=== PATIENT | female | born 1965 | race African-American/Black ===

== ENCOUNTER 2017-02-28 13:39 | Emergency (ER) | payer OTHER, SELFPAY ==
[~2017-02-28 13:39] MED LIST: ISOVUE-370 76%-LOCM 1 ML ONE
[2017-02-28 14:39] LABS: #Basophils 0.1 thou/uL (0.0-0.2); #Eosinphils 0.1 thou/uL (0.0-0.7); #Lymphocytes 0.9 thou/uL (1.20-3.40); #Monocytes 0.6 thou/uL (0.11-0.59); #Neutrophils 6.8 thou/uL (1.40-6.50); %Basophils 0.6 % (0.0-1.0); %Eosinophils 0.9 % (0.0-10.0); %Lymphocytes 11.1 % (21.0-51.0); %Monocytes 6.6 % (0.0-10.0); Hematocrit 44.4 % (36.0-47.0); Mean Platelet Volume 9.2 fL (7.4-10.4); Red Blood Cell (RBC) Count 4.38 mill/uL (4.20-5.40); White Blood Cell (WBC) Count 8.4 thou/uL (4.8-10.8)
[2017-02-28 14:42] LABS: Bilirubin Small (Negative); Blood, Urine Negative (Negative); Glucose, Urine (Dipstick) Negative (Negative); Ketone, Urine Negative (Negative); Nitrite Negative (Negative); Protein, Urine (Dipstick) Negative (Neg-Trace)
[2017-02-28 15:00] LABS: ALT (SGPT) 27 U/L (8-55); AST (SGOT) 43 U/L (5-34); Alkaline Phosphatase 193 U/L (40-150); Anion Gap 13 mmol/L (10-20); BUN (Urea Nitrogen) 15 mg/dL (7.0-18.7); Bilirubin, Total 1.3 mg/dL (0.2-1.2); Calc. Creatinine Clearance 0 mL/min (70-130); Calcium 9.9 mg/dL (7.8-10.44); Carbon Dioxide 26 mmol/L (22-29); Chloride 100 mmol/L (98-107); Estimated GFR-MDRD 76; Globulin 4.8 g/dL (2.4-3.5); Lipase 17 U/L (8-78)
[2017-02-28] MEDS ORDERED: Morphine 4 MG/ML VIAL ONE (18:36)
[2017-02-28] MEDS ORDERED: Ondansetron HCl/PF 4 MG/2 ML Vial ONE ×2 (18:36)
[2017-02-28] MEDS ORDERED: Acetaminophen 500 MG TAB ONE (21:22)
--- NOTE | 2017-02-28 21:59 | CT ---
CT ABDOMEN AND PELVIS WITH IV CONTRAST 02/28/17 PROVIDED CLINICAL HISTORY: Abdominal pain. FINDINGS: Comparison is made with the study dated 03/22/14. The visualized lung bases are free of significant opacity. The liver, spleen, pancreas, kidneys and adrenal glands appear unremarkable. Changes of interval chol ecystectomy. There is no bowel dilatation, inflammatory fat stranding, free fluid or free air apparent. There is f luid density present within portions of the colon suggesting a diarrheal illness. The appendix is gen erous in caliber but contains air and there is no surrounding inflammatory change. The osseous structures demonstrate no concerning osteoblastic or osteolytic lesions. IMPRESSION: Fluid density within the colon, suggesting a diarrheal illness. POS: ANN MARIE
== END 2017-02-28 21:27 | disposition home or self-care (01) ==
LOC: ERS 13:39
DX: R10.84 Generalized abdominal pain (principal); R11.2 Nausea with vomiting, unspecified; R19.7 Diarrhea, unspecified; I10 Essential (primary) hypertension
CPT/HCPCS: 36415; 74177; 80053; 81003; 81025; 83690; 85025; 96374; 96375; J2270; J2405

== ENCOUNTER 2017-03-31 15:01 | Emergency (ER) | payer SELFPAY ==
[2017-03-31] MEDS ORDERED: Ketorolac Tromethamine 60 MG/2 ML VIAL ONE (16:15)
[2017-03-31] MEDS ORDERED: Adacel (T-DAP) 0.5 ML VIAL ONE (16:16)
== END 2017-03-31 16:49 | disposition home or self-care (01) ==
LOC: ERS 15:01
DX: S00.03XA Contusion of scalp, initial encounter (principal); S50.02XA Contusion of left elbow, initial encounter; Y92.69 Other specified industrial and construction area as the place of occurrence of the external cause; Y99.0 Civilian activity done for income or pay; I10 Essential (primary) hypertension; W22.8XXA Striking against or struck by other objects, initial encounter
CPT/HCPCS: 90471; 90715; 96372; J1885

== ENCOUNTER 2017-04-15 10:11 | Emergency (ER) | payer SELFPAY | END 2017-04-15 11:34 | disposition home or self-care (01) | LOC: ERS 10:11 | DX: S46.911A Strain of unspecified muscle, fascia and tendon at shoulder and upper arm level, right arm, initial encounter (principal); M75.51 Bursitis of right shoulder; I10 Essential (primary) hypertension; X58.XXXA Exposure to other specified factors, initial encounter | CPT/HCPCS: 99283 ==

== ENCOUNTER 2017-05-29 11:23 | Emergency (ER) | payer SELFPAY ==
[2017-05-29 12:19] LABS: Bilirubin Negative (Negative); Blood, Urine Negative (Negative); Clarity CLEAR (Clear); Glucose, Urine (Dipstick) Negative (Negative); Leukocyte Negative (Negative); Nitrite Negative (Negative); Protein, Urine (Dipstick) Negative (Neg-Trace); Specific Gravity, Urine 1.005 (1.002-1.036); Urobilinogen 0.2 mg/dL (0.2-1.0)
[2017-05-29 12:29] LABS: #Basophils 0.1 thou/uL (0.0-0.2); #Eosinphils 0.1 thou/uL (0.0-0.7); #Lymphocytes 2.7 thou/uL (1.20-3.40); #Monocytes 0.5 thou/uL (0.11-0.59); #Neutrophils 2.3 thou/uL (1.40-6.50); %Eosinophils 0.9 % (0.0-10.0); %Lymphocytes 47.6 % (21.0-51.0); %Monocytes 9.4 % (0.0-10.0); %Neutrophils 41.1 % (42.0-75.0); Hemoglobin 13.5 g/dL (12.0-16.0); Mean Corpuscular Hemoglobin 32.1 pg (27.0-31.0); Mean Corpuscular Volume 97.3 fl (81.0-99.0); Mean Platelet Volume 8.7 fL (7.4-10.4); Platelet Count 106 thou/uL (130-400); Red Blood Cell (RBC) Count 4.22 mill/uL (4.20-5.40); White Blood Cell (WBC) Count 5.7 thou/uL (4.8-10.8)
[2017-05-29 12:43] LABS: ALT (SGPT) 24 U/L (8-55); AST (SGOT) 35 U/L (5-34); Albumin 3.9 g/dL (3.5-5.0); Alkaline Phosphatase 191 U/L (40-150); Anion Gap 12 mmol/L (10-20); BUN (Urea Nitrogen) 12 mg/dL (7.0-18.7); Bilirubin, Total 1.1 mg/dL (0.2-1.2); Calc. Creatinine Clearance 0 mL/min (70-130); Calcium 9.4 mg/dL (7.8-10.44); Carbon Dioxide 25 mmol/L (22-29); Chloride 105 mmol/L (98-107); Estimated GFR-MDRD Greater than 90; Globulin 4.2 g/dL (2.4-3.5); Glucose 90 mg/dL (70-105); Lipase 25 U/L (8-78); Potassium 4.3 mmol/L (3.5-5.1); Protein, Total 8.1 g/dL (6.0-8.3); Sodium 138 mmol/L (136-145)
--- NOTE | 2017-05-29 13:50 | ULT ---
ABDOMINAL ULTRASOUND: 05/29/2017 HISTORY: Hepatitis C. Cirrhosis. Gallbladder is surgically absent. COMPARISON: Abdominal ultrasound from 06/16/2016. FINDINGS: The liver is enlarged in craniocaudal dimensions, measuring 18 cm. No focal hepatic mass is seen. The gallbladder is not visualized, consistent with the patient's reported history of a cholecystectom y. The visualized portions of the pancreas, the visualized portions of the IVC, and the right kidney dem onstrate a normal sonographic appearance. The right kidney measures 9.7 cm in length. The common duct measures 0.5 cm in diameter. The abdominal aorta is normal in caliber with suggestion of minimal atherosclerotic plaque. IMPRESSION: 1. Enlargement of the liver. The liver measures slightly larger in size compared to the prior exam. No focal hepatic lesion is seen. 2. Post cholecystectomy changes. The common duct is normal in caliber. POS: ANN MARIE
== END 2017-05-29 14:29 | disposition home or self-care (01) ==
LOC: ERS 11:23
DX: B19.20 Unspecified viral hepatitis C without hepatic coma (principal); K74.60 Unspecified cirrhosis of liver; I10 Essential (primary) hypertension
CPT/HCPCS: 36415; 76705; 80053; 81003; 83690; 85025

== ENCOUNTER 2017-07-28 12:48 | Emergency (ER) | payer SELFPAY ==
[2017-07-28] MEDS ORDERED: Ketorolac Tromethamine 30 MG/ML VIAL ONE (13:27)
[2017-07-28] MEDS ORDERED: predniSONE 20 MG TAB ONE (13:27)
--- NOTE | 2017-07-28 14:17 | RAD ---
LEFT WRIST THREE VIEWS: HISTORY: Pain. COMPARISON: None. FINDINGS: There is mild scalloping of the distal ulnar metaphyseal cortex. No acute fracture or malalignment. Mild radial carpal narrowing. Mild degenerative disease of the thumb carpometacarpal joint. IMPRESSION: Findings suggesting a prior injury to the distal ulna. Nonemergent follow-up forearm radiographs may be beneficial. POS: ANN MARIE
== END 2017-07-28 14:07 | disposition home or self-care (01) ==
LOC: ERS 12:48
DX: G56.02 Carpal tunnel syndrome, left upper limb (principal); K74.60 Unspecified cirrhosis of liver; I10 Essential (primary) hypertension
CPT/HCPCS: 96372; J1885; J7506

== ENCOUNTER 2018-11-15 18:11 | Emergency (ER) | payer SELFPAY ==
[2018-11-15 18:57] LABS: #Lymphocytes 3.2 thou/uL (1.20-3.40); #Monocytes 0.8 thou/uL (0.11-0.59); #Neutrophils 7.1 thou/uL (1.40-6.50); %Basophils 0.1 % (0.0-1.0); %Eosinophils 0.4 % (0.0-10.0); %Lymphocytes 28.9 % (21.0-51.0); %Monocytes 6.8 % (0.0-10.0); %Neutrophils 63.8 % (42.0-75.0); Hemoglobin 13.2 g/dL (12.0-16.0); Mean Corpuscular HGB CONC 33.7 g/dL (32.0-36.0); Mean Corpuscular Hemoglobin 32.5 pg (27.0-31.0); Mean Corpuscular Volume 96.5 fL (78.0-98.0); Mean Platelet Volume 9.4 fL (7.4-10.4); Platelet Count 110 thou/uL (130-400); RBC Distribution Width 11.6 % (11.5-14.5); Red Blood Cell (RBC) Count 4.05 mill/uL (4.20-5.40)
[2018-11-15 19:10] LABS: ALT (SGPT) 28 U/L (8-55); AST (SGOT) 39 U/L (5-34); Albumin 4.1 g/dL (3.5-5.0); Alkaline Phosphatase 126 U/L (40-150); Anion Gap 12 mmol/L (10-20); BUN (Urea Nitrogen) 8 mg/dL (7.0-18.7); Bilirubin, Total 1.1 mg/dL (0.2-1.2); Calc. Creatinine Clearance 0 mL/min (70-130); Calcium 9.3 mg/dL (7.8-10.44); Carbon Dioxide 26 mmol/L (22-29); Chloride 105 mmol/L (98-107); Estimated GFR-MDRD Greater than 90; Globulin 3.2 g/dL (2.4-3.5); Glucose 121 mg/dL (70-105); Lipase 13 U/L (8-78); Potassium 3.8 mmol/L (3.5-5.1); Protein, Total 7.3 g/dL (6.0-8.3); Sodium 139 mmol/L (136-145)
[2018-11-15 19:34] LABS: Bilirubin Negative (Negative); Blood, Urine Negative (Negative); Clarity Clear (Clear); Glucose, Urine (Dipstick) Normal (Negative); Leukocyte Negative Leu/uL (Negative); Nitrite Negative (Negative); Protein, Urine (Dipstick) Negative (Neg-Trace); Urobilinogen Normal mg/dL (Less than 2)
[2018-11-15] MEDS ORDERED: Acetaminophen 325 MG TAB ONE (21:58)
== END 2018-11-15 22:37 | disposition home or self-care (01) ==
LOC: ERS 18:11
DX: K74.60 Unspecified cirrhosis of liver (principal); F43.10 Post-traumatic stress disorder, unspecified; I10 Essential (primary) hypertension; Z79.899 Other long term (current) drug therapy
CPT/HCPCS: 36415; 80053; 81003; 82140; 83690; 85025; 99283

== ENCOUNTER 2018-12-01 05:19 | Emergency (ER) | payer OTHER, SELFPAY ==
[2018-12-01] MEDS ORDERED: Acetaminophen 500 MG TAB ONE (05:37)
[2018-12-01] MEDS ORDERED: Triple Antibiotic Oint 1 GM Packet ONE (06:02)
--- NOTE | 2018-12-01 07:40 | RAD ---
EXAM: XR Knee Rt 4 View STANDARD PROVIDED CLINICAL HISTORY: Pain FINDINGS: There is no evidence for fracture or other acute osseous abnormality. Alignment appears anatomic. Annabella nt spaces appear preserved. IMPRESSION: No evidence for an acute osseous abnormality. If there is persistent clinical concern, conservative m anagement and follow-up imaging advised.
== END 2018-12-01 06:20 | disposition home or self-care (01) ==
LOC: ERS 05:19
DX: S83.91XA Sprain of unspecified site of right knee, initial encounter (principal); I10 Essential (primary) hypertension; F43.10 Post-traumatic stress disorder, unspecified; F32.9 Major depressive disorder, single episode, unspecified; Z79.899 Other long term (current) drug therapy; Y04.0XXA Assault by unarmed brawl or fight, initial encounter